=== PATIENT | male | born 1990 | race American Indian/Alaskan Native ===

== ENCOUNTER 2016-09-18 07:39 | Inpatient (IN) | payer OTHER ==
[2016-09-18 08:41] LABS: Basophils % (Auto) 0.5 % (0.0-1.8); Eosinophils % (Auto) 1.5 % (0.0-4.3); Mean Corpuscular HGB Conc 31 % (32-34); Mean Corpuscular Hemoglobin 22 pg (28-32); Mean Corpuscular Volume 71 fl (84-94); Platelet Count 449 K/mm3 (140-440); Red Blood Count 2.63 M/mm3 (3.65-5.03); Red Cell Distribution Width 16.5 % (13.2-15.2); White Blood Count 4.2 K/mm3 (4.5-11.0)
[2016-09-18 08:47] LABS: Anion Gap 15 mmol/L; BUN/Creatinine Ratio 6.36; Blood Urea Nitrogen 7 mg/dL (9-20); Calcium 8.9 mg/dL (8.4-10.2); Carbon Dioxide 26 mmol/L (22-30); Chloride 98.3 mmol/L (98-107); Glucose 123 mg/dL (75-100); Potassium 3.5 mmol/L (3.6-5.0); Sodium 136 mmol/L (137-145)
[2016-09-18 08:50] LABS: Hematocrit 18.7 % (35.5-45.6); Hemoglobin 5.7 gm/dl (11.8-15.2)
[2016-09-18 09:37] LABS: Bilirubin,Urine NEG (Negative); Blood,Urine NEG (Negative); Ketones,Urine NEG (Negative); Leukocyte Esterase,Urine NEG (Negative); Mucus,Urine 1+ /HPF; Nitrite,Urine NEG (Negative); Protein,Urine <15 mg/dL mg/dL (Negative); Urobilinogen,Urine < 2.0 mg/dL (<2.0)
[2016-09-18] MEDS ORDERED: NACL 0.9% 500 ML 500 ML IV ONE (10:00)
--- NOTE | 2016-09-18 10:03 | Emergency Department Report ---
<KANU NEGRO M - Last Filed: 09/18/16 10:00> ED General Adult HPI - General Chief complaint: Dizziness Stated complaint: DIZZINESS/BLOCKAGE IN EAR Source: patient Mode of arrival: Ambulatory Limitations: No Limitations - Related Data Home Medications Medication Instructions Recorded Confirmed Last Taken No Known Home Medications [No 09/18/16 09/18/16 Unknown Reported Home Medications] Allergies Allergy/AdvReac Type Severity Reaction Status Date / Time No Known Allergies Allergy Verified 09/18/16 07:48 ED Review of Systems ROS: Stated complaint: DIZZINESS/BLOCKAGE IN EAR Other details as noted in HPI ED Past Medical Hx - Past Medical History Previous Medical History?: No - Surgical History Past Surgical History?: No - Social History Smoking Status: Never Smoker Substance Use Type: Alcohol - Medications Home Medications: Home Medications Medication Instructions Recorded Confirmed Last Taken Type No Known Home Medications [No 09/18/16 09/18/16 Unknown History Reported Home Medications] ED Physical Exam - General Limitations: No Limitations ED Course Vital Signs 09/18/16 09/18/16 09/18/16 07:49 09:03 09:05 Temperature 97.8 F Pulse Rate 90 80 Respiratory 17 14 Rate Blood Pressure 129/84 127/81 127/81 O2 Sat by Pulse 100 100 100 Oximetry ED Medical Decision Making - Lab Data Result diagrams: 09/18/16 08:03 09/18/16 08:03 Critical care attestation.: If time is entered above; I have spent that time in minutes in the direct care of this critically ill patient, excluding procedure time. ED Disposition Clinical Impression: Acute blood loss anemia, Dizziness, Lower GI bleed Condition: Stable Referrals: PRIMARY CARE, [Primary Care Provider] - 3-5 Days <SAMI PADILLA - Last Filed: 09/18/16 10:39> ED General Adult HPI - General Source: patient Mode of arrival: Ambulatory Limitations: No Limitations - History of Present Illness Initial comments: 25 y/o M presents w/ cc of dizziness x 1 week. Pt for the past 2-3 weeks has noted intermittent brbpr with clots, no abdominal pain. No headache chest pain, but does not mild shortness of breath. No hx of fever, use of anticoagulants, etoh abuse, nsaid abuse. Dizziness worse when standing, no hx of syncope. ED Review of Systems Comment: All other systems reviewed and negative Constitutional: denies: chills, fever Eyes: denies: eye pain, eye discharge, vision change ENT: denies: ear pain, throat pain Respiratory: denies: cough, shortness of breath, wheezing Cardiovascular: denies: chest pain, palpitations Endocrine: no symptoms reported Gastrointestinal: denies: abdominal pain, nausea, diarrhea Genitourinary: denies: urgency, dysuria Musculoskeletal: denies: back pain, joint swelling, arthralgia Skin: denies: rash, lesions Neurological: denies: headache, weakness, paresthesias Psychiatric: denies: anxiety, depression Hematological/Lymphatic: denies: easy bleeding, easy bruising ED Past Medical Hx - Past Medical History Previous Medical History?: No ED Physical Exam - General General appearance: alert, in no apparent distress - Head Head exam: Present: atraumatic, normocephalic - Eye Eye exam: Present: normal appearance - ENT ENT exam: Present: mucous membranes moist - Neck Neck exam: Present: normal inspection - Respiratory Respiratory exam: Present: normal lung sounds bilaterally. Absent: respiratory distress - Cardiovascular Cardiovascular Exam: Present: regular rate, normal rhythm. Absent: systolic murmur, diastolic murmur, rubs, gallop - GI/Abdominal GI/Abdominal exam: Present: soft, normal bowel sounds - Rectal Rectal exam: Present: deferred, other (Tommy as skills trainer, brown stool but + hemoccult) - Extremities Exam Extremities exam: Present: normal inspection - Back Exam Back exam: Present: normal inspection - Neurological Exam Neurological exam: Present: alert, oriented X3 - Psychiatric Psychiatric exam: Present: normal affect, normal mood - Skin Skin exam: Present: warm, dry, intact, normal color. Absent: rash ED Course - Consultations Consultation #1: 09/18/16 10:37 spoke to hospitalist will admit ED Medical Decision Making - Lab Data Result diagrams: 09/18/16 08:03 09/18/16 08:03 - Medical Decision Making Dyspnea,d izziness liekly due to anemia, pt HDS, likely stable lower gi bleed given brbpr hx and no abd pain, will admit, will transfuse ED Disposition Is pt being admited?: Yes Does the pt Need Aspirin: No Time of Disposition: 10:38
[2016-09-18] MEDS ORDERED: DULCOLAX PR PRN (10:52)
[2016-09-18] MEDS ORDERED: MILK OF MAGNESIA PO PRN (10:52)
[2016-09-18] MEDS ORDERED: ZOFRAN IV PRN (10:52)
[2016-09-18] MEDS ORDERED: TYLENOL PO PRN (10:52)
--- NOTE | 2016-09-18 10:54 | XRay Report ---
Single view chest: History: Hypertension. Findings: Normal cardiomediastinal silhouette. Trachea is midline. No consolidation, pneumothorax or pleural effusion. Impression: No acute cardiopulmonary findings.
--- NOTE | 2016-09-18 10:55 | History and Physical Report ---
History of Present Illness Date of examination: 09/18/16 History of present illness: 25-year-old male with no past medical history presents with symptomatic anemia, dizziness. Patient stated that he noticed that this morning when he woke up he was very dizzy and had told him to keep from falling. Patient noted previous episode where after intercourse he blacked out but did not come to the hospital. Patient admits to several episodes of bloody stools and some episodes actually had clots of blood. Patient has no significant past medical history no surgery. Patient decided coming to the hospital today because he is Feeling dizzy like he was passed out again. Patient denies any chest pain. No shortness of breath. No nausea vomiting diarrhea. Past History Past Medical History: No medical history Medications and Allergies Allergies Allergy/AdvReac Type Severity Reaction Status Date / Time No Known Allergies Allergy Verified 09/18/16 07:48 Home Medications Medication Instructions Recorded Confirmed Last Taken Type No Known Home Medications [No 09/18/16 09/18/16 Unknown History Reported Home Medications] Review of Systems Cardiovascular: syncope Exam - Constitutional Vitals: Temp Pulse Resp BP Pulse Ox 97.8 F 80 14 127/81 100 09/18/16 07:49 09/18/16 09:05 09/18/16 09:05 09/18/16 09:05 09/18/16 09:05 General appearance: Present: no acute distress - EENT Eyes: Present: PERRL, EOM intact ENT: hearing intact, clear oral mucosa, dentition normal - Neck Neck: Present: supple, normal ROM - Respiratory Respiratory effort: normal Respiratory: bilateral: CTA - Cardiovascular Rhythm: regular Heart Sounds: Present: S1 & S2 - Extremities Extremities: no ischemia, No edema - Abdominal General gastrointestinal: Present: soft, non-tender, non-distended, normal bowel sounds - Musculoskeletal Musculoskeletal: strength equal bilaterally - Psychiatric Psychiatric: appropriate mood/affect, intact judgment & insight - Neurologic Neurologic: CNII-XII intact, moves all extremities Results - Labs CBC & Chem 7: 09/18/16 08:03 09/18/16 08:03 Labs: Laboratory Last Values WBC 4.2 K/mm3 (4.5-11.0) L 09/18/16 08:03 RBC 2.63 M/mm3 (3.65-5.03) L 09/18/16 08:03 Hgb 5.7 gm/dl (11.8-15.2) L* 09/18/16 08:03 Hct 18.7 % (35.5-45.6) L* 09/18/16 08:03 MCV 71 fl (84-94) L 09/18/16 08:03 MCH 22 pg (28-32) L 09/18/16 08:03 MCHC 31 % (32-34) L 09/18/16 08:03 RDW 16.5 % (13.2-15.2) H 09/18/16 08:03 Plt Count 449 K/mm3 (140-440) H 09/18/16 08:03 Lymph % (Auto) 30.1 % (13.4-35.0) 09/18/16 08:03 [place] % (Auto) 8.2 % (0.0-7.3) H 09/18/16 08:03 Eos % (Auto) 1.5 % (0.0-4.3) 09/18/16 08:03 Baso % (Auto) 0.5 % (0.0-1.8) 09/18/16 08:03 Lymph # 1.3 K/mm3 (1.2-5.4) 09/18/16 08:03 [place] # 0.3 K/mm3 (0.0-0.8) 09/18/16 08:03 Eos # 0.1 K/mm3 (0.0-0.4) 09/18/16 08:03 Baso # 0.0 K/mm3 (0.0-0.1) 09/18/16 08:03 Seg Neutrophils % 59.7 % (40.0-70.0) 09/18/16 08:03 Seg Neutrophils # 2.5 K/mm3 (1.8-7.7) 09/18/16 08:03 Sodium 136 mmol/L (137-145) L 09/18/16 08:03 Potassium 3.5 mmol/L (3.6-5.0) L 09/18/16 08:03 Chloride 98.3 mmol/L (98-107) 09/18/16 08:03 Carbon Dioxide 26 mmol/L (22-30) 09/18/16 08:03 Anion Gap 15 mmol/L 09/18/16 08:03 BUN 7 mg/dL (9-20) L 09/18/16 08:03 Creatinine 1.1 mg/dL (0.8-1.5) 09/18/16 08:03 Estimated GFR > 60 ml/min 09/18/16 08:03 BUN/Creatinine Ratio 6.36 % 09/18/16 08:03 Glucose 123 mg/dL (75-100) H 09/18/16 08:03 Calcium 8.9 mg/dL (8.4-10.2) 09/18/16 08:03 Urine Color Yellow (Yellow) 09/18/16 09:03 Urine Turbidity Clear (Clear) 09/18/16 09:03 Urine pH 5.0 (5.0-7.0) 09/18/16 09:03 Ur Specific [place] 1.016 (1.003-1.030) 09/18/16 09:03 Urine Protein <15 mg/dl mg/dL (Negative) 09/18/16 09:03 Urine Glucose (UA) Neg mg/dL (Negative) 09/18/16 09:03 Urine Ketones Neg mg/dL (Negative) 09/18/16 09:03 Urine Blood Neg (Negative) 09/18/16 09:03 Urine Nitrite Neg (Negative) 09/18/16 09:03 Urine Bilirubin Neg (Negative) 09/18/16 09:03 Urine Urobilinogen < 2.0 mg/dL (<2.0) 09/18/16 09:03 Ur Leukocyte Esterase Neg (Negative) 09/18/16 09:03 Urine WBC (Auto) 1.0 /HPF (0.0-6.0) 09/18/16 09:03 Urine RBC (Auto) 2.0 /HPF (0.0-6.0) 09/18/16 09:03 U Epithel Cells (Auto) < 1.0 /HPF (0-13.0) 09/18/16 09:03 Urine Mucus 1+ /HPF 09/18/16 09:03 Assessment and Plan - Patient Problems (1) Symptomatic anemia Current Visit: Yes Status: Acute Plan to address problem: Secondary to GI bleed. Will get GI consult for EGD and colonoscopy (2) Lower GI bleed Current Visit: Yes Status: Acute Plan to address problem: We will admit to telemetry. Will get GI consult. Transfuse 2 units of packed red blood cells. IV fluid hydration. IV Pepcid
[2016-09-18] MEDS: PEPCID IV SCH ×2 (11:11→23:42)
--- NOTE | 2016-09-18 11:15 | Emergency Department Report ---
HPI - General Chief Complaint: Dizziness Time Seen by Provider: 09/18/16 10:10 - HPI HPI: [facility] General Medical Problem Patient Name: JENNI HARRISON Date of : 88 Patient Status: Emergency Emergency Provider: SAMI PADILLA Date: 09/18/16 10:00 Initialization Date: 09/18/16 10:00 <KANU NEGRO - Last Filed: 09/18/16 10:00> ED General Adult HPI - General Chief complaint: Dizziness Stated complaint: DIZZINESS/BLOCKAGE IN EAR Source: patient Mode of arrival: Ambulatory Limitations: No Limitations - Related Data Home Medications Medication Instructions Recorded Confirmed Last Taken No Known Home Medications [No 09/18/16 09/18/16 Unknown Reported Home Medications] Allergies Allergy/AdvReac Type Severity Reaction Status Date / Time No Known Allergies Allergy Verified 09/18/16 07:48 ED Review of Systems ROS: Stated complaint: DIZZINESS/BLOCKAGE IN EAR Other details as noted in HPI ED Past Medical Hx - Past Medical History Previous Medical History?: No - Surgical History Past Surgical History?: No - Social History Smoking Status: Never Smoker Substance Use Type: Alcohol - Medications Home Medications: Home Medications Medication Instructions Recorded Confirmed Last Taken Type No Known Home Medications [No 09/18/16 09/18/16 Unknown History Reported Home Medications] ED Physical Exam - General Limitations: No Limitations ED Course Vital Signs 09/18/16 09/18/16 09/18/16 07:49 09:03 09:05 Temperature 97.8 F Pulse Rate 90 80 Respiratory 17 14 Rate Blood Pressure 129/84 127/81 127/81 O2 Sat by Pulse 100 100 100 Oximetry ED Medical Decision Making - Lab Data Result diagrams: 09/18/16 08:03 09/18/16 08:03 Critical care attestation.: If time is entered above; I have spent that time in minutes in the direct care of this critically ill patient, excluding procedure time. ED Disposition Clinical Impression: Acute blood loss anemia, Dizziness, Lower GI bleed Condition: Stable Referrals: PRIMARY CARE, [Primary Care Provider] - 3-5 Days <SAMI PADILLA - Last Filed: 09/18/16 10:39> ED General Adult HPI - General Source: patient Mode of arrival: Ambulatory Limitations: No Limitations - History of Present Illness Initial comments: 25 y/o M presents w/ cc of dizziness x 1 week. Pt for the past 2-3 weeks has noted intermittent brbpr with clots, no abdominal pain. No headache chest pain, but does not mild shortness of breath. No hx of fever, use of anticoagulants, etoh abuse, nsaid abuse. Dizziness worse when standing, no hx of syncope. ED Review of Systems Comment: All other systems reviewed and negative Constitutional: denies: chills, fever Eyes: denies: eye pain, eye discharge, vision change ENT: denies: ear pain, throat pain Respiratory: denies: cough, shortness of breath, wheezing Cardiovascular: denies: chest pain, palpitations Endocrine: no symptoms reported Gastrointestinal: denies: abdominal pain, nausea, diarrhea Genitourinary: denies: urgency, dysuria Musculoskeletal: denies: back pain, joint swelling, arthralgia Skin: denies: rash, lesions Neurological: denies: headache, weakness, paresthesias Psychiatric: denies: anxiety, depression Hematological/Lymphatic: denies: easy bleeding, easy bruising ED Past Medical Hx - Past Medical History Previous Medical History?: No ED Physical Exam - General General appearance: alert, in no apparent distress - Head Head exam: Present: atraumatic, normocephalic - Eye Eye exam: Present: normal appearance - ENT ENT exam: Present: mucous membranes moist - Neck Neck exam: Present: normal inspection - Respiratory Respiratory exam: Present: normal lung sounds bilaterally. Absent: respiratory distress - Cardiovascular Cardiovascular Exam: Present: regular rate, normal rhythm. Absent: systolic murmur, diastolic murmur, rubs, gallop - GI/Abdominal GI/Abdominal exam: Present: soft, normal bowel sounds - Rectal Rectal exam: Present: deferred, other (Tommy as loaders, brown stool but + hemoccult) - Extremities Exam Extremities exam: Present: normal inspection - Back Exam Back exam: Present: normal inspection - Neurological Exam Neurological exam: Present: alert, oriented X3 - Psychiatric Psychiatric exam: Present: normal affect, normal mood - Skin Skin exam: Present: warm, dry, intact, normal color. Absent: rash ED Course - Consultations Consultation #1: 09/18/16 10:37 spoke to hospitalist will admit ED Medical Decision Making - Lab Data Result diagrams: 09/18/16 08:03 09/18/16 08:03 - Medical Decision Making Dyspnea,d izziness liekly due to anemia, pt HDS, likely stable lower gi bleed given brbpr hx and no abd pain, will admit, will transfuse ED Disposition Is pt being admited?: Yes Does the pt Need Aspirin: No Time of Disposition: 10:38 ED Past Medical Hx - Past Medical History Previous Medical History?: No - Surgical History Past Surgical History?: No - Social History Smoking Status: Never Smoker Substance Use Type: Alcohol - Medications Home Medications: Home Medications Medication Instructions Recorded Confirmed Last Taken Type No Known Home Medications [No 09/18/16 09/18/16 Unknown History Reported Home Medications] ED Review of Systems ROS: Stated complaint: DIZZINESS/BLOCKAGE IN EAR Other details as noted in HPI Constitutional: denies: chills, fever Eyes: denies: eye pain, eye discharge, vision change ENT: denies: ear pain, throat pain Respiratory: denies: cough, shortness of breath, wheezing Cardiovascular: denies: chest pain, palpitations Endocrine: no symptoms reported Gastrointestinal: denies: abdominal pain, nausea, diarrhea Genitourinary: denies: urgency, dysuria Musculoskeletal: denies: back pain, joint swelling, arthralgia Skin: denies: rash, lesions Neurological: denies: headache, weakness, paresthesias Psychiatric: denies: anxiety, depression Hematological/Lymphatic: denies: easy bleeding, easy bruising Physical Exam - Physical Exam Vital Signs: Vital Signs 09/18/16 09/18/16 09/18/16 07:49 09:03 09:05 Temperature 97.8 F Pulse Rate 90 80 Respiratory 17 14 Rate Blood Pressure 129/84 127/81 127/81 O2 Sat by Pulse 100 100 100 Oximetry ED Course Vital Signs 09/18/16 09/18/16 09/18/16 07:49 09:03 09:05 Temperature 97.8 F Pulse Rate 90 80 Respiratory 17 14 Rate Blood Pressure 129/84 127/81 127/81 O2 Sat by Pulse 100 100 100 Oximetry ED Medical Decision Making - Lab Data Result diagrams: 09/18/16 08:03 09/18/16 08:03 Critical care attestation.: If time is entered above; I have spent that time in minutes in the direct care of this critically ill patient, excluding procedure time. ED Disposition Clinical Impression: Acute blood loss anemia, Dizziness, Symptomatic anemia, Lower GI bleed Disposition: OP ADMITTED IP TO THIS HOSP Is pt being admited?: Yes Condition: Stable Referrals: PRIMARY CARE,MD [Primary Care Provider] - 3-5 Days
[2016-09-18 11:34] LABS: Magnesium 2.2 mg/dL (1.7-2.3)
[2016-09-18 11:40] LABS: INR 0.99 (0.87-1.13); Partial Thromboplastin Time 31.8 Sec. (24.2-36.6)
[2016-09-18] MEDS ORDERED: D5NS 1,000 ML IV ONE (11:57)
[2016-09-18] MEDS: D5NS 1,000 ML IV SCH (12:15)
--- NOTE | 2016-09-18 13:36 | Event Note ---
- full GI consult dictated - plan egd/colon am
[2016-09-18 14:10] LABS: Urine Drugs of Abuse Note Disclamer
[2016-09-18] MEDS ORDERED: GOLYTELY PO SCH ×2 (15:00→23:00)
[2016-09-18] MEDS ORDERED: NACL 0.9% 250ML 250 ML ONE (15:40)
--- NOTE | 2016-09-18 19:37 | Consultation ---
INDICATION: Rectal bleeding. HISTORY OF PRESENT ILLNESS: The patient is a 25-year-old black male presents with symptomatic anemia. The patient reports he has had over a month intermittent bright red and dark stools. He reports he has had some episodes of dizziness. He reported that he over recent days he has been taking some NSAIDs and Tylenol due to musculoskeletal ailments. He reports he started having bright red and maroon stool and subsequently came to the Emergency Room. In the Emergency Room, the patient was noted to be heme positive and anemic and admitted and GI consulted. Denies any weight loss. Denies any other specific GI problems or complaints. PAST MEDICAL HISTORY: Negative. MEDICATIONS: See chart. ALLERGIES: No known drug allergies. SOCIAL HISTORY: Social alcohol, denies tobacco. FAMILY HISTORY: Negative for colon cancer. REVIEW OF SYSTEMS: GENERAL: Reports mild weakness. HEENT: No visual complaints or tinnitus. PULMONARY: No shortness of breath. No cough. No chest pain. GASTROINTESTINAL: Reports bloody bowel movements. All points of 13-point review of systems otherwise negative. PHYSICAL EXAMINATION: VITAL SIGNS: Temperature of 98.7, pulse 88, respirations 18, blood pressure 108/69. HEENT: Pupils equal, round, reactive. PULMONARY: Clear to auscultation bilaterally. CARDIOVASCULAR: Regular rhythm. Normal S1, S2. ABDOMEN: Positive bowel sounds. Soft. LABORATORY DATA: Pertinent for white count of 4.2, hemoglobin and hematocrit of 5.7 and 18.7, platelet count of 449. Coags within normal limits. LFTs within normal limits. Chem-7 within normal limits. ASSESSMENT AND PLAN: A 25-year-old black male presents signs of GI bleed who has had intermittent bloody bowel movements. The patient does report recent NSAID use. We would want to rule out both upper and lower GI pathology. PLAN: 1. Follow hematocrit and transfuse as needed. 2. PPI IV b.i.d. 3. Plan EGD and colonoscopy in a.m. JOB# [id number] CAB/NTS
--- NOTE | 2016-09-19 02:25 | Admit Criteria Form ---
Admission Criteria Documentation: GASTROINTESTINAL BLEEDING, LOWER Clinical Indications for Admission to Inpatient Care ( Place 'X' for any and all applicable criteria): Admission is indicated for ANY ONE of the following(1)(2)(3)(4)(5): [ ]I. Active gross bleeding per rectum [ X]II. Inpatient admission required rather than observation care (Also use Gastrointestinal Bleeding, Lower: Observation Care as appropriate) because of ANY ONE of the following: [ ]a) Hemodynamic instability that is severe or persistent [ ]b) Anemia requiring inpatient admission as indicated by ALL of the following: [ ]1) Presence of significant clinical finding indicated by ANY ONE of the following: [ ]A. Tachycardia for age [ ]B. Orthostatic vital sign changes [ ]C. Cognitive impairment [ ]D. Heart failure [ ]E. Chest pain [ ]F. Exertional dyspnea [ ]G. Other findings suggesting inadequate perfusion (eg, peripheral or myocardial ischemia, end organ dysfunction) [ ]2) Initial (eg, emergency department, observation care) treatment with transfusion or volume replacement is judged inappropriate (due to severity of the finding) or has been ineffective [ ]c) Severe pain requiring acute inpatient management [ ]d) Absent bowel sounds with complete ileus [ ]e) Signs of intestinal obstruction or peritonitis [A] [ ]f) High-risk low platelet count [ ]g) Severe electrolyte abnormalities requiring inpatient care [ ]h) Acute renal failure [ ]i) High fever or infection requiring inpatient admission as indicated by ANY ONE of the following(8)(9): [ ]1) Appropriate outpatient or observation care antimicrobial treatment unavailable, not effective, or not feasible Documented bacteremia [ ]2) Documented bacteremia [ ]3) Temperature greater than 104.9 degrees F ( 40.5 degrees C) (oral) [ ]4) Temperature greater than 103.1 degrees F ( 39.5 degrees C) (oral) or less than 96.8 degrees F (36 degrees C) (rectal) that does not respond to all emergency treatment measures [ ]j) IV fluid to replace significant ongoing losses ( greater than 3 L/m2 per day) [ ]k) Immediate inpatient surgery needed [ ]l) Parenteral nutrition regimen that must be implemented on inpatient basis [ X]m) Other condition, treatment or monitoring requiring inpatient admission [ ]III. Unstable comorbid illness (renal, hepatic, pulmonary, hematologic, neurologic, or cardiac) [ ]IV. Failure to control bleeding after colonoscopy [ ]V. Coagulopathy [ ]. Suspected or known ischemic colitis(6) [ ]VII. Previous aortic graft placement or known aortic aneurysm Extended stay beyond goal length of stay may be needed for(3)(4)(28): [ ]a) Emergency surgery [ ]b) Coagulation abnormalities(26) [ ]c) Recurrent or persistent bleeding, continued vital sign instability(27)( 28) [ ]d) Active comorbidities (eg, renal insufficiency, heart failure, pre- existing liver disease) The original [employer] content created by [employer] has been revised. The portions of the content which have been revised are identified through the use of italic text or in bold, and [facility] has neither reviewed nor approved the modified material. All other unmodified content is copyright [employer] license of [facility]. Please see references footnoted in the original [employer] edition 2016 Admission Criteria Met: Yes
[2016-09-19] MEDS: D5NS 1,000 ML IV SCH (06:24)
[2016-09-19 06:32] LABS: Alanine Aminotransferase 20 units/L (7-56); Albumin 3.4 g/dL (3.9-5); Alkaline Phosphatase 50 units/L (35-129); Anion Gap 15 mmol/L; Bilirubin,Total 0.5 mg/dL (0.1-1.2); Blood Urea Nitrogen 4 mg/dL (9-20); Calcium 8.5 mg/dL (8.4-10.2); Carbon Dioxide 26 mmol/L (22-30); Chloride 104.8 mmol/L (98-107); Glucose 100 mg/dL (75-100); Sodium 142 mmol/L (137-145); Total Protein 6.7 g/dL (6.3-8.2)
[2016-09-19 06:40] LABS: Basophils % (Auto) 0.9 % (0.0-1.8); Eosinophils % (Auto) 0.9 % (0.0-4.3); Hematocrit 23.1 % (35.5-45.6); Hemoglobin 7.3 gm/dl (11.8-15.2); Mean Corpuscular HGB Conc 32 % (32-34); Mean Corpuscular Volume 75 fl (84-94); Platelet Count 388 K/mm3 (140-440); Red Blood Count 3.07 M/mm3 (3.65-5.03); Red Cell Distribution Width 19.1 % (13.2-15.2)
[2016-09-19 07:05] LABS: Mean Corpuscular Hemoglobin 24 pg (28-32)
[2016-09-19] MEDS ORDERED: WATER FOR IRRIG STERILE ONE (09:17)
[2016-09-19] MEDS ORDERED: WATER FOR IRRIG STERILE IR ONE ×2 (09:17→12:48)
[2016-09-19] MEDS ORDERED: NACL 0.9% 1000 ML 1,000 ML IV SCH (10:00)
[2016-09-19] MEDS ORDERED: NACL 0.9% 1000 ML 1,000 ML ONE (10:04)
[2016-09-19] MEDS: PEPCID IV SCH ×2 (10:22→21:29)
--- NOTE | 2016-09-19 13:09 | Anesthesia Day of Surgery ---
Anesthesia Day of Surgery - Day of Surgery Patient Examined: Yes Patient H&P Reviewed: Yes Patient is NPO: Yes
--- NOTE | 2016-09-19 13:09 | Anesthesia Consultation ---
Anesthesia Consult and Med Hx Date of service: 09/19/16 - Airway Anesthetic Teeth Evaluation: Good ROM Head & Neck: Adequate Mallampati Class: Class II Intubation Access Assessment: Probably Good - Pre-Operative Health Status ASA Pre-Surgery Classification: ASA2 Proposed Anesthetic Plan: MAC - Pulmonary Hx Asthma: No COPD: No Hx Pneumonia: No - Central Nervous System Hx Psychiatric Problems: No - Gastrointestinal Hx Ulcer: Yes (severe lower GI bleed, given 2 units of RBCs) - Endocrine Hx End Stage Renal Disease: No - Other Systems Hx Cancer: No
[2016-09-19] MEDS ORDERED: DIPRIVAN 10 MG/ML IV ONE ×2 (13:14→13:20)
[2016-09-19] MEDS ORDERED: XYLOCAINE MPF 2% ONE (13:15)
--- NOTE | 2016-09-19 14:00 | Post Operative Note ---
Pre-op diagnosis: anemia Post-op diagnosis: same Findings: EGD: hiatal hernia - moderate inflammation gastric cardia (bx's) - otherwise nl egd Colonoscopy: medium external, medium/large internal hemorrhoids w/ erythema - negative other Procedure: EGD/colonoscopy Anesthesia: MAC Surgeon: LUIGI MOHR Estimated blood loss: none Pathology: list Specimen disposition: to lab Condition: stable Disposition: floor
[2016-09-19] MEDS ORDERED: PROCTOSOL-HC PR PRN (15:01)
--- NOTE | 2016-09-19 15:24 | Operative Report ---
PROCEDURE: Esophagogastroduodenoscopy. INDICATION: 1. Anemia. 2. GI bleed. MEDICATIONS: Propofol per CONTROL TOWER OPERATOR. COMPLICATIONS: None. DESCRIPTION OF PROCEDURE: The patient was brought to the procedure suite. The patient had the procedure discussed with him at length. All risks, complications, and benefits were discussed after which the patient signed for the procedure to be performed. The patient was placed in left lateral decubitus position. Mouth block was placed in the patient's oral cavity. After adequate sedation medication as above, endoscope placed in the mouth and brought to the level of the second portion of duodenum. Retroflexion view was performed. The patient's vital signs remained stable throughout the procedure. FINDINGS: There was noted to be a small hiatal hernia at GE junction at 40 cm from the gums. The esophagus otherwise appeared to be normal. There was [id number] inflammation noted in the gastric cardia. No stigmata of bleeding was noted. Biopsies were taken and sent to pathology. The remaining stomach otherwise appeared to be normal. The duodenum appeared to be normal. Retroflexion view performed in the stomach showed no other pathology other than noted above. The patient tolerated the procedure well. No complications noted during the procedure. IMPRESSION: 1. Hiatal hernia. 2. Gastritis, biopsies performed. 3. Otherwise, normal esophagogastroduodenoscopy. RECOMMENDATIONS: 1. Followup biopsy results. 2. If H. pylori is positive, treat. 3. PPI daily. 4. Colonoscopy followup. Further recommendations based on colonoscopy results. JOB# [id number] [facility]/NT[facility]
--- NOTE | 2016-09-19 15:44 | Operative Report ---
PROCEDURE: Colonoscopy. INDICATION: 1. Anemia. 2. Rectal bleeding. MEDICATIONS: Propofol per AED TRAINER. COMPLICATIONS: None. DESCRIPTION OF PROCEDURE: The patient was brought to the procedure suite. The patient had the procedure discussed with him at length. All risks, complications, and benefits were discussed after which the patient signed for the procedure performed. The patient was placed in left lateral decubitus position. Rectal exam performed prior to insertion of the scope. After adequate sedation and medication as above, the scope was inserted in the rectum and brought to the level of the cecum. Ileocecal valve and appendiceal orifice, cecal strap were adequately visualized. Colonoscope was then removed and the mucosa of the colon was visualized. Prep quality for the procedure was fair. The patient's vital signs remained stable throughout the procedure. FINDINGS: There were no mass lesions, polyps, or diverticula noted during this procedure. No signs of bleeding were noted. Retroflexion and perianal exam showed medium external and medium to large internal hemorrhoids with bright red spots and pigmentation. Possible source of bleeding. The patient tolerated the procedure well. No complications during the procedure. IMPRESSION: 1. Internal and external hemorrhoids as noted above. 2. Otherwise, normal colonoscopy. RECOMMENDATIONS: 1. Anusol-HC suppositories b.i.d. 2. High-fiber diet and increase water intake. 3. Colorectal surgery consult as an outpatient. 4. Advance diet. 5. If H and H stable in a.m., okay to discharge from GI standpoint. JOB# [id number] [facility]/NTS
--- NOTE | 2016-09-19 16:38 | Progress Note ---
Assessment and Plan Assessment and plan: 25 years old male admitted for dizziness after multiple episodes of melena/ bright red blood per rectum 1. Lower GI bleed GI consulted and EGD/colonoscopy performed this morning EGD showing hiatal hernia and moderate inflammation cardia Colonoscopy revealing large internal and external hemorrhoids with erythema Started on Protonix, Anusol cream Needs outpatient colorectal surgery appointment for hemorrhoidectomy 2. Acute blood loss symptomatic anemia Status post 2 units PRBC Monitor H&H Start iron supplementation as he may continue to have some rectal bleeding until issue adressed by rectal surgeon 3. Obesity Counseled regarding importance of losing weight and lifestyle changes 4. DVT prophylaxis SCDs History Interval history: Status post EGD/colonoscopy this morning revealed large internal and external hemorrhoids Status post 2 units PRBC transfusion Feeling better Hospitalist Physical - Constitutional Vitals: Temp Pulse Resp BP Pulse Ox 98.7 F 76 18 120/84 100 09/19/16 13:33 09/19/16 14:02 09/19/16 14:02 09/19/16 14:02 09/19/16 14:02 General appearance: Present: no acute distress, obese - EENT Eyes: Present: PERRL, EOM intact. Absent: scleral icterus, conjunctival injection - Neck Neck: Present: supple, normal ROM. Absent: masses or JVD - Respiratory Respiratory effort: normal Respiratory: bilateral: CTA, negative: rhonchi, wheezing - Cardiovascular Rhythm: regular Heart Sounds: Present: S1 & S2. Absent: systolic murmur - Extremities Extremities: no ischemia - Abdominal General gastrointestinal: soft, non-tender, non-distended, normal bowel sounds - Integumentary Integumentary: Present: warm, dry. Absent: jaundice, rash - Psychiatric Psychiatric: cooperative - Neurologic Neurologic: CNII-XII intact, no focal deficits Results - Labs CBC & Chem 7: 09/19/16 05:40 09/19/16 05:40 Labs: Laboratory Last Values WBC 5.0 K/mm3 (4.5-11.0) 09/19/16 05:40 RBC 3.07 M/mm3 (3.65-5.03) L 09/19/16 05:40 Hgb 7.3 gm/dl (11.8-15.2) L 09/19/16 05:40 Hct 23.1 % (35.5-45.6) L 09/19/16 05:40 MCV 75 fl (84-94) L D 09/19/16 05:40 MCH 24 pg (28-32) L 09/19/16 05:40 MCHC 32 % (32-34) 09/19/16 05:40 RDW 19.1 % (13.2-15.2) H 09/19/16 05:40 Plt Count 388 K/mm3 (140-440) 09/19/16 05:40 Lymph % (Auto) 28.5 % (13.4-35.0) 09/19/16 05:40 Bullock % (Auto) 6.6 % (0.0-7.3) 09/19/16 05:40 Eos % (Auto) 0.9 % (0.0-4.3) 09/19/16 05:40 Baso % (Auto) 0.9 % (0.0-1.8) 09/19/16 05:40 Lymph # 1.4 K/mm3 (1.2-5.4) 09/19/16 05:40 Bullock # 0.3 K/mm3 (0.0-0.8) 09/19/16 05:40 Eos # 0.0 K/mm3 (0.0-0.4) 09/19/16 05:40 Baso # 0.0 K/mm3 (0.0-0.1) 09/19/16 05:40 Seg Neutrophils % 63.1 % (40.0-70.0) 09/19/16 05:40 Seg Neutrophils # 3.2 K/mm3 (1.8-7.7) 09/19/16 05:40 PT 13.0 Sec. (12.2-14.9) 09/18/16 10:58 INR 0.99 (0.87-1.13) 09/18/16 10:58 APTT 31.8 Sec. (24.2-36.6) 09/18/16 10:58 Sodium 142 mmol/L (137-145) 09/19/16 05:40 Potassium 4.0 mmol/L (3.6-5.0) 09/19/16 05:40 Chloride 104.8 mmol/L (98-107) 09/19/16 05:40 Carbon Dioxide 26 mmol/L (22-30) 09/19/16 05:40 Anion Gap 15 mmol/L 09/19/16 05:40 BUN 4 mg/dL (9-20) L 09/19/16 05:40 Creatinine 1.0 mg/dL (0.8-1.5) 09/19/16 05:40 Estimated GFR > 60 ml/min 09/19/16 05:40 BUN/Creatinine Ratio 4.00 % 09/19/16 05:40 Glucose 100 mg/dL (75-100) 09/19/16 05:40 Calcium 8.5 mg/dL (8.4-10.2) 09/19/16 05:40 Magnesium 2.2 mg/dL (1.7-2.3) 09/18/16 10:58 Total Bilirubin 0.5 mg/dL (0.1-1.2) 09/19/16 05:40 AST 25 units/L (5-40) 09/19/16 05:40 ALT 20 units/L (7-56) 09/19/16 05:40 Alkaline Phosphatase 50 units/L (35-129) 09/19/16 05:40 NT-Pro-B Natriuret Pep 19.73 pg/mL (0-450) 09/18/16 10:58 Total Protein 6.7 g/dL (6.3-8.2) 09/19/16 05:40 Albumin 3.4 g/dL (3.9-5) L 09/19/16 05:40 Albumin/Globulin Ratio 1.0 % 09/19/16 05:40 Vitamin B12 309.3 pg/mL (211-911) 09/18/16 10:58 Folate 14.39 ng/mL (7.3-26.0) 09/18/16 10:58 Urine Color Yellow (Yellow) 09/18/16 09:03 Urine Turbidity Clear (Clear) 09/18/16 09:03 Urine pH 5.0 (5.0-7.0) 09/18/16 09:03 Ur Specific [place] 1.016 (1.003-1.030) 09/18/16 09:03 Urine Protein <15 mg/dl mg/dL (Negative) 09/18/16 09:03 Urine Glucose (UA) Neg mg/dL (Negative) 09/18/16 09:03 Urine Ketones Neg mg/dL (Negative) 09/18/16 09:03 Urine Blood Neg (Negative) 09/18/16 09:03 Urine Nitrite Neg (Negative) 09/18/16 09:03 Urine Bilirubin Neg (Negative) 09/18/16 09:03 Urine Urobilinogen < 2.0 mg/dL (<2.0) 09/18/16 09:03 Ur Leukocyte Esterase Neg (Negative) 09/18/16 09:03 Urine WBC (Auto) 1.0 /HPF (0.0-6.0) 09/18/16 09:03 Urine RBC (Auto) 2.0 /HPF (0.0-6.0) 09/18/16 09:03 U Epithel Cells (Auto) < 1.0 /HPF (0-13.0) 09/18/16 09:03 Urine Mucus 1+ /HPF 09/18/16 09:03 Urine Opiates Screen Presumptive negative 09/18/16 09:03 Urine Methadone Screen Presumptive negative 09/18/16 09:03 Ur Barbiturates Screen Presumptive negative 09/18/16 09:03 Ur Phencyclidine Scrn Presumptive negative 09/18/16 09:03 Ur Amphetamines Screen Presumptive negative 09/18/16 09:03 U Benzodiazepines Scrn Presumptive negative 09/18/16 09:03 Urine Cocaine Screen Presumptive negative 09/18/16 09:03 U Marijuana (THC) Screen Presumptive negative 09/18/16 09:03 Drugs of Abuse Note Disclamer 09/18/16 09:03 Blood Type O POSITIVE 09/18/16 11:00 Antibody Screen TNR 09/18/16 11:00 DEIRDRE Antibody Screen Negative 09/18/16 11:00 Crossmatch See Detail 09/18/16 11:00
[2016-09-19] MEDS: FEOSOL PO SCH (21:29)
[2016-09-20 06:17] LABS: Hematocrit 23.3 % (35.5-45.6); Hemoglobin 7.4 gm/dl (11.8-15.2)
--- NOTE | 2016-09-20 08:38 | Discharge Summary ---
Providers - Providers Date of Admission: 09/18/16 11:52 Date of discharge: 09/20/16 Attending physician: BETH RODRIGUEZ CONSULTS: GI Primary care physician: LOCKSTITCH TUNNEL ELASTIC OPERATOR Hospitalization Reason for admission: dizziness Condition: Stable Pertinent studies: CXR Procedures: EGD/colonoscopy Hospital course: Patient is a 25 years old male admitted for dizziness after multiple episodes of melena/bright red blood per rectum. Found to have severe, symptomatic anemia due to lower GI bleed. GI consulted and underwent EGD/colonoscopy that revealed large internal and external hemorrhoids with erythema or which he needs a referral to a colorectal surgeon for hemorrhoidectomy. He was transfused 2 units PRBCs and hemoglobin has been low, but stable after transfusion. Started on iron supplementation and discharge in stable condition. Counseled regarding importance of losing weight and lifestyle changes. Discharge diagnosis: 1. Lower GI bleed 2. Acute blood loss symptomatic anemia 3. Obesity Disposition: DISCHARGED TO HOME OR SELFCARE Time spent for discharge: 35 min Core Measure Documentation - Palliative Care Palliative Care/ Comfort Measures: Not Applicable - Core Measures Any of the following diagnoses?: none Exam - Physical Exam Narrative exam: Patient seen and examined: - Constitutional Vitals: Temp Pulse Resp BP Pulse Ox 98.2 F 89 18 118/63 100 09/20/16 08:15 09/20/16 08:15 09/20/16 08:15 09/20/16 08:15 09/20/16 08:15 General appearance: Present: no acute distress, obese - EENT Eyes: Present: PERRL, EOM intact. Absent: scleral icterus, conjunctival injection - Neck Neck: Present: supple, normal ROM. Absent: masses or JVD - Respiratory Respiratory effort: normal Respiratory: bilateral: CTA, negative: rales, rhonchi, wheezing - Cardiovascular Rhythm: regular Heart Sounds: Present: S1 & S2. Absent: systolic murmur - Extremities Extremities: no ischemia - Abdominal General gastrointestinal: Present: soft, non-tender, non-distended, normal bowel sounds - Integumentary Integumentary: Present: warm, dry. Absent: jaundice, rash - Musculoskeletal Musculoskeletal: strength equal bilaterally - Psychiatric Psychiatric: cooperative - Neurologic Neurologic: CNII-XII intact, no focal deficits Plan Activity: advance as tolerated Diet: low cholesterol, low salt Additional Instructions: Follow up with Dr. Dav Terry, colorectal surgeon - [phone] Follow up with: PRIMARY CARE, [Primary Care Provider] - 3-5 Days Prescriptions: Bisacodyl [Dulcolax suppos] 10 mg MS QDAY PRN #20 supp.rect PRN Reason: Constipation unrelieved by MOM Docusate Sodium [Colace] 100 mg PO BID #60 capsule Ferrous Sulfate [Feosol 325 MG tab] 325 mg PO BID #60 tablet Hydrocortisone 2.5% [Proctosol-Hc] 1 applic MS Q8H PRN #1 tube PRN Reason: Hemorrhoids Magnesium Hydroxide [Milk of Magnesia] 30 ml PO Q4H PRN #20 oral.liqd PRN Reason: Constipation
[2016-09-20] MEDS: FEOSOL PO SCH (10:00)
[2016-09-20 11:34] VITALS: BP 113/71
--- NOTE | 2016-09-20 13:13 | Gastroenterology Progress Note ---
Assessment and Plan GI: stable w/o bleeding overnight - advance diet - ok to d/c, call if needed Subjective Date of service: 09/20/16 Interval history: - no problems overnight Objective - Constitutional Vitals: Temp Pulse Resp BP Pulse Ox 98.4 F 85 18 113/71 100 09/20/16 11:30 09/20/16 11:30 09/20/16 11:30 09/20/16 11:30 09/20/16 11:30 General appearance: no acute distress - Respiratory Respiratory: bilateral: CTA - Cardiovascular Rhythm: regular Heart Sounds: Present: S1 & S2 - Gastrointestinal General gastrointestinal: Present: soft, non-tender, non-distended - Labs CBC & Chem 7: 09/20/16 04:56 09/19/16 05:40 Labs: Laboratory Results - last 24 hr 09/20/16 09/20/16 04:56 04:56 Hgb 7.4 L Hct 23.3 L Iron 112
== END 2016-09-20 12:04 | disposition home or self-care (01) | DRG 394 ==
LOC: ED 07:39 → 4A 11:52
PROVIDERS: ADMIT Internal Medicine; ATTEND Internal Medicine
PROC: 30233N1 Transfusion of Nonautologous Red Blood Cells into Peripheral Vein, Percutaneous Approach (ICD-10-PCS; principal; 2016-09-18)
PROC: 0DB68ZX Excision of Stomach, Via Natural or Artificial Opening Endoscopic, Diagnostic (ICD-10-PCS; 2016-09-19)
PROC: 0DJD8ZZ Inspection of Lower Intestinal Tract, Via Natural or Artificial Opening Endoscopic (ICD-10-PCS; 2016-09-19)
DX: K64.8 Other hemorrhoids (principal); D62 Acute posthemorrhagic anemia; E66.9 Obesity, unspecified; K44.9 Diaphragmatic hernia without obstruction or gangrene; Z91.81 History of falling; Z68.31 Body mass index [BMI] 31.0-31.9, adult; Z71.3 Dietary counseling and surveillance
CPT/HCPCS: 36415; 71010; 80048; 80053; 80307; 81001; 82607; 82747; 83540; 83735; 83880; 85014; 85018; 85025; 85610; 85730; 86850; 86900; 86901; 86920; 88305; 88342; 93005; 93010; 99285; J2704; J7030; J7042; J7050; P9016